=== PATIENT | female | born 1965 | race African-American/Black ===

== ENCOUNTER 2025-05-15 14:52 | Emergency (ER) | payer MEDICAID, OTHER ==
[~2025-05-15] VITALS: Ht 175.3 cm; Wt 110.0 kg
[2025-05-15 14:54] VITALS: O2SAT 96
[2025-05-15 15:00] VITALS: BP 138/83; PULSE 81; RESP 18; TEMP 37.2; O2SAT 99
[2025-05-15] MEDS ORDERED: FLUC150T46 MT (16:51)
[2025-05-15] MEDS ORDERED: NYST15PO13 TP (16:51)
[2025-05-15] MEDS ORDERED: NAPR-681 MT (16:51)
[2025-05-15] MEDS ORDERED: DOXY100T28 MT (16:51)
== END 2025-05-15 17:01 | disposition home or self-care (01) ==
LOC: ER 14:52
DX: L30.4 Erythema intertrigo (principal); I10 Essential (primary) hypertension; Z98.890 Other specified postprocedural states; Z88.0 Allergy status to penicillin; Z88.1 Allergy status to other antibiotic agents
CPT/HCPCS: 99283; Z7610 ×3